=== PATIENT | male | born 1975 | race Caucasian/White ===

== ENCOUNTER 2022-07-31 10:00 | Outpatient (CLI) | payer OTHER, SELFPAY ==
[2022-07-31 10:44] LABS: Hematocrit 46.7 % (42.0-52.0); Hemoglobin 15.4 g/dL (14.0-18.0); Mean Corpuscular Hemoglobin 30.8 pg (26-34); Mean Corpuscular Volume 93.4 fl (80-100); Mean Platelet Volume 11.4 fl (7.4-10.4); Platelet Count Result 204 k/mm3 (150-375); Red Cell Distribution Width 13.5 % (11.5-14.5); White Blood Count 8.3 K/mm3 (4.5-10.0)
[2022-07-31 11:03] LABS: Alanine Aminotransferase 47 U/L (6-50); Albumin Level 3.9 g/dL (3.5-5.1); Alkaline Phosphatase 76 U/L (38-126); Anion Gap 6 mmol/L (8-16); Aspartate Amino Transferase 30 U/L (17-59); Bilirubin,Total 0.3 mg/dL (0.2-1.3); Blood Urea Nitrogen 19 mg/dL (9-20); Calcium 8.6 mg/dL (8.4-10.2); Carbon Dioxide 27 mmol/L (22-30); Chloride 108 mmol/L (98-107); Estimated Glomerular Filt Rate > 60; Glucose 99 mg/dL (65-110); Potassium 4.1 mmol/L (3.4-5.0); Sodium 141 mmol/L (137-145)
[2022-07-31 11:34] LABS: Prostate Specific Antigen 0.8 ng/mL (< OR = 4.0)
== END 2022-07-31 10:01 | disposition home or self-care (01) ==
LOC: ANHLAB 10:02
PROVIDERS: PCP Family Medicine; Visit Provider Family Medicine
DX: E78.2 Mixed hyperlipidemia (principal); Z12.5 Encounter for screening for malignant neoplasm of prostate; I10 Essential (primary) hypertension
CPT/HCPCS: 36415; 80048; 80076; 84153; 84443; 85027; 86038; G0103

== ENCOUNTER → 2023-04-26 09:43 | Outpatient (REF) | payer OTHER, SELFPAY | LOC: ANHLAB 09:43 | PROVIDERS: PCP Family Medicine; Visit Provider Plastic Surgery | DX: L57.0 Actinic keratosis (principal) | CPT/HCPCS: 88305 ==

== ENCOUNTER 2023-05-19 18:05 | Emergency (ER) | payer OTHER, SELFPAY ==
[2023-05-19] VITALS (7 sets, daily range): BP systolic 142–181; BP diastolic 95–101; PULSE 71–80; RESP 16–70; TEMP 36.7; O2SAT 100
--- NOTE | ~2023-05-19 | CT_ITS ---
EXAMINATION: CT abdomen pelvis wo con DATE: 05/19/2023 21:41 INDICATION: Right flank pain. TECHNIQUE: Computed tomography (CT) of the abdomen and pelvis was performed without intravenous contr ast. Automated exposure control and iterative reconstruction technique were employed. The dose-length product was 725.37 mGy-cm. COMPARISON: CT abdomen and pelvis 10/18/2016 FINDINGS: The visualized portions of the lung bases demonstrate mild atelectasis. No pleural effusion . The heart size is normal. No pericardial effusion. The liver, gallbladder, spleen, pancreas, and ad renal glands are normal. There is a 17 mm mass in right kidney measuring soft tissue attenuation. The re are approximately 4 stones in right kidney measuring up to 5 mm. There is mild right hydronephrosi s and hydroureter. There is a 5 mm stone at right ureterovesicular junction. There are 5 stones in le ft kidney measuring up to 3 mm. There is a 5 mm cyst in left kidney. There is mild diffuse bladder wa ll thickening, likely secondary to chronic outlet obstruction from the moderately enlarged prostate. There are no dilated loops of bowel. The appendix is normal. There are no pathologically enlarged lym ph nodes. There is no free intraperitoneal fluid. There is mild thoracic and lumbar spondylosis. IMPRESSION: 1. 5 mm stone at right ureterovesicular junction with mild right hydronephrosis and hydroureter. 2. Bilateral nonobstructing kidney stones. 3. 17 mm right kidney mass, which may be a hemorrhagic cyst or less likely a neoplasm. Abdomen CT or MRI without and with contrast is recommended. Reviewed, dictated and finalized at location [facility]. [facility] IMPRESSION: 1. 5 mm stone at right ureterovesicular junction with mild right hydronephrosis and hydroureter. 2. Bilateral nonobstructing kidney stones. 3. 17 mm right kidney mass, which may be a hemorrhagic cyst or less likely a ne oplasm. Abdomen CT or MRI without and with contrast is recommended.
[2023-05-19 18:41] LABS: Basophils Absolute Auto 0.1 K/mm3 (0.0-0.1); Basophils Percent Auto 0.6 % (0.2-1.2); Eosinophils Absolute Auto 0.4 K/mm3 (0-0.3); Eosinophils Percent Auto 3.9 % (0-4.4); Hematocrit 45.4 % (42.0-52.0); Immature Granulocyte Absolute 0.04 K/mm3 (0.00-0.031); Immature Granulocyte Percent A 0.4 % (0-0.5); Lymphocytes Absolute Auto 2.58 K/mm3 (0.9-3.2); Mean Corpuscular Hemoglobin 30.8 pg (26-34); Mean Corpuscular Volume 93.2 fl (80-100); Mean Platelet Volume 11.5 fl (7.4-10.4); Monocytes Percent Auto 8.6 % (2.6-8.5); Neutrophils Absolute Auto 7.1 K/mm3 (1.3-6.7); Neutrophils Percent Auto 63.5 % (45.5-73.1); Platelet Count Result 209 k/mm3 (150-375); Red Blood Count 4.87 M/mm3 (4.6-6.20); Red Cell Distribution Width 13.8 % (11.5-14.5); White Blood Count 11.2 K/mm3 (4.5-10.0)
[2023-05-19 18:51] LABS: Alanine Aminotransferase 41 U/L (6-50); Albumin Level 4.3 g/dL (3.5-5.1); Alkaline Phosphatase 59 U/L (38-126); Anion Gap 6 mmol/L (8-16); Aspartate Amino Transferase 39 U/L (17-59); Bilirubin,Total 0.4 mg/dL (0.2-1.3); Blood Urea Nitrogen 14 mg/dL (9-20); Calcium 9.3 mg/dL (8.4-10.2); Carbon Dioxide 28 mmol/L (22-30); Chloride 106 mmol/L (98-107); Estimated CRCL calculation 96 ml/min; Estimated Glomerular Filt Rate > 60; Glucose 107 mg/dL (65-110); Potassium 3.4 mmol/L (3.4-5.0); Sodium 140 mmol/L (137-145)
[2023-05-19 19:07] LABS: Appearance Urine Clear (Clear); Bacteria Urine None Seen /hpf; Bilirubin Urine Negative (Negative); Blood Urine Trace (Negative); Color Urine Yellow (Yellow); Glucose Urine UA Negative (Negative); Ketones Urine Negative (Negative); Leukocyte Esterase Ur Negative LEU/UL (Negative); Nitrate Urine Negative (Negative); Non Pathogenic Casts 0-2; Protein Urine Negative (Negative); RBC Urine 0-2 /hpf (0-2); Specific Grav Ur 1.006 (1.001-1.035); Squamous Epithelial Cell Urine None seen /hpf (Few); Urobilinogen Urine 0.2 mg/dL (<2.0); WBC Urine 0-5 /hpf
[2023-05-19 19:29] LABS: Add Urine Microscopic? YES
--- NOTE | 2023-05-19 21:29 | ED.GENADULT ---
HPI - General Adult General Chief complaint: Urogenital-Male Stated complaint: urinary retention- R flank pain Time Seen by Provider: 05/19/23 21:12 History of Present Illness HPI narrative: Patient 47-year-old gentleman presents emergency department with chief complaint of right sided flank pain and frequency of urination. The patient reports he has prior history of kidney stones reports that he started having pain in the right flank area that is moved to the right lower quadrant and the patient states that he has had frequent urination and discomfort with urination. The patient states he does not feel as though he is fully emptying his bladder and reports he has had small amounts of urination at times. The patient denies fever denies vomiting denies diarrhea. The patient reports approximately 2 years ago he did have a stone surgically removed. Related Data Home Medications Medication Instructions Recorded Confirmed fluticasone propionate 93 2 spray intranasal Q12H 03/23/22 04/26/23 mcg/actuation breath activated aerosol (Xhance) Allergies Allergy/AdvReac Type Severity Reaction Status Date / Time No Known Allergies Allergy Unknown Verified 05/04/23 14:49 Review of Systems Review of Systems: A 10 system review of systems was completed on the patient and is negative except for what is stated in the HPI. Nursing and ancillary documentation was reviewed. FOR[facility]LY [facility] Past Medical History Medical History Allergic rhinitis Basal cell carcinoma (BCC) BMI 28.0-28.9,adult BMI 29.0-29.9,adult Essential hypertension Growth of eyelid Hyperlipidemia Screening for lipid disorders Screening for prostate cancer Strain of rhomboid muscle Tobacco abuse Family History Family History Other No family history of hypertension Social History Social History Smoking status: Current every day smoker Tobacco type: cigarettes Second hand tobacco smoke exposure: No Alcohol intake: current Exam Narrative: GENERAL: Well-appearing, well-nourished, and in no acute distress. HEAD: Normocephalic, atraumatic. EYES: PERRLA and EOMI. ENT: Nares clear, no rhinorrhea or epistaxis. Mucous membranes moist. NECK: Supple. CHEST: Clear to auscultation. No respiratory distress. HEART: Regular rate and rhythm. No murmur heard. Normal peripheral pulses. ABDOMEN: Soft, nontender, nondistended, normal active bowel sounds. EXTREMITIES: Normal range of motion. No edema. SKIN: Warm, dry, no rash. NEURO: No focal deficits. Alert and oriented x3. PSYCH: Normal mood and affect. Course Vital Signs Vital signs: Vital Signs Temperature 36.7 C 05/19/23 18:22 Pulse Rate 80 05/19/23 18:22 Respiratory Rate 18 05/19/23 18:22 Blood Pressure 181/101 H 05/19/23 18:22 Pulse Oximetry 100 05/19/23 18:22 Oxygen Delivery Room Air 05/19/23 18:22 Temperature 36.7 C 05/19/23 18:22 Pulse Rate 72 05/19/23 21:17 Respiratory Rate 70 H 05/19/23 21:46 Blood Pressure 164/95 H 05/19/23 21:18 Pulse Oximetry 100 05/19/23 21:46 Oxygen Delivery Room Air 05/19/23 18:22 Medical Decision Making MDM Narrative Medical decision making narrative: Differential diagnosis includes ureterolithiasis, urinary obstruction, pyelonephritis, CT scan of the abdomen pelvis was obtained which showed 5 mm stone at right ureterovesicular junction with mild right hydronephrosis and hydroureter. 2. Bilateral nonobstructing kidney stones. 3. 17 mm right kidney mass, which may be a hemorrhagic cyst or less likely a neoplasm. Abdomen CT or MRI without and with contrast is recommended. Laboratory studies were obtained which showed a CBC was within normal limits CMP showed no evidence of renal failure urinalysis showed no evidence of UTI. Jim
[2023-05-19] MEDS: oxyCODONE/ACETAMINOPHEN (*CRX) 5-325 MG TABLET 1 TABLET PO (22:10)
== END 2023-05-19 22:15 | disposition home or self-care (01) ==
PROVIDERS: Student in an Organized Health Care Education/Training Program; Emergency Provider Emergency Medicine; PCP Family Medicine
DX: N13.2 Hydronephrosis with renal and ureteral calculous obstruction (principal); I10 Essential (primary) hypertension; E78.5 Hyperlipidemia, unspecified; F17.210 Nicotine dependence, cigarettes, uncomplicated; Z85.828 Personal history of other malignant neoplasm of skin; N28.89 Other specified disorders of kidney and ureter
CPT/HCPCS: 36415; 74176; 80053; 81001; 85025; 99284; A9270

== ENCOUNTER 2024-08-11 09:10 | Outpatient (CLI) | payer OTHER, SELFPAY ==
[2024-08-11 09:41] LABS: Hematocrit 44.3 % (42.0-52.0); Hemoglobin 14.5 g/dL (14.0-18.0); Mean Corpuscular HGB Conc 32.7 g/dl (32-36); Mean Corpuscular Volume 94.9 fl (80-100); Mean Platelet Volume 10.9 fl (7.4-10.4); Platelet Count Result 201 k/mm3 (150-375); Red Blood Count 4.67 M/mm3 (4.6-6.20); Red Cell Distribution Width 13.8 % (11.5-14.5); White Blood Count 6.1 K/mm3 (4.5-10.0)
[2024-08-11 10:20] LABS: Alanine Aminotransferase 44 U/L (6-50); Albumin Level 4.2 g/dL (3.5-5.1); Alkaline Phosphatase 59 U/L (38-126); Anion Gap 8 mmol/L (4-12); Aspartate Amino Transferase 25 U/L (17-59); Bilirubin,Total 0.5 mg/dL (0.2-1.3); Blood Urea Nitrogen 21 mg/dL (9-20); Calcium 9.2 mg/dL (8.4-10.2); Carbon Dioxide 27 mmol/L (22-30); Chloride 107 mmol/L (98-107); Cholesterol 208 mg/dL (0-200); Estimated Glomerular Filt Rate > 60; Glucose 107 mg/dL (65-110); HDL Direct 47 mg/dL; Potassium 4.4 mmol/L (3.4-5.0); Sodium 142 mmol/L (137-145); Triglycerides 63 mg/dL (<150)
[2024-08-11 10:31] LABS: LDL Cholesterol Direct 144 mg/dL
[2024-08-11 10:50] LABS: Prostate Specific Antigen 0.8 ng/mL (< OR = 4.0); Thyroid Stimulating Hormone 0.909 uIU/mL (0.465-4.680)
== END 2024-08-11 09:11 | disposition home or self-care (01) ==
LOC: ANHLAB 09:11
PROVIDERS: PCP Family Medicine; Visit Provider Family Medicine
DX: Z12.5 Encounter for screening for malignant neoplasm of prostate (principal); I10 Essential (primary) hypertension; N52.9 Male erectile dysfunction, unspecified; Z13.220 Encounter for screening for lipoid disorders; E78.2 Mixed hyperlipidemia
CPT/HCPCS: 36415; 80048; 80061; 80076; 84153; 84402; 84403; 84443; 85027; G0103